=== PATIENT | female | born 1990 | race Hispanic/Latino ===

== ENCOUNTER 2018-04-27 10:52 | Emergency (ER) | payer OTHER ==
[2018-04-27 10:58] VITALS: BMI 19.0
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
[2018-04-27 12:15] LABS: SQUAMOUS EPITHIAL 12 /hpf (0-5); URINE BACTERIA RARE (<OCC); URINE BILIRUBIN NEGATIVE (NEGATIVE); URINE BLOOD 2+ (NEGATIVE); URINE CLARITY Clear (Clear); URINE COLOR Yellow (YELLOW); URINE GLUCOSE (UA) NORMAL (Normal); URINE LEUKOCYTE ESTERASE NEG Leu/uL (Negative); URINE PROTEIN NEGATIVE (NEGATIVE); URINE UROBILINOGEN NORMAL mg/dL (0.2-1.0)
--- NOTE | 2018-04-27 13:25 | RAD ---
Date of service: 04/27/2018 PROCEDURE: Cervical Spine Radiographs. HISTORY: Pain. COMPARISON: None. FINDINGS: BONES: Alignment maintained. No fracture. Dens Intact. The vertebral bodies are maintained in height. There is mild reversal of the normal lordotic curvature indicating possible muscular spasm. The atlantoaxial articulation and odontoid process are intact. . DISC SPACES: Normal. SOFT TISSUES: Normal. No prevertebral soft tissue swelling. OTHER FINDINGS: None. IMPRESSION: Possible muscular spasm. Otherwise unremarkable examination.
--- NOTE | 2018-04-27 14:18 | US ---
Date of service: 04/27/2018 HISTORY: vaginal bleeding s/o injury COMPARISON: None available. TECHNIQUE: Transabdominal and transvaginal FINDINGS: UTERUS: Measures 7.5 x 3.0 x 4.5 cm. Normal size. There are several hypoechoic areas, 1 rounded in 1 irregularly shaped, in the anterior lower uterine segment of uncertain significance. This does not have an appearance consistent with a myometrial hematoma, acute. This is not likely related to the patient's vaginal bleeding. ENDOMETRIUM: Measures 2 mm in diameter. Unremarkable. CERVIX: No cervical abnormality identified. RIGHT OVARY: Measures 3.4 x 1.7 x 2.3 cm. No solid mass. Normal flow. LEFT OVARY: Measures 2.5 x 1.5 x 2.3 cm. No solid mass. Normal flow. FREE FLUID: No significant free fluid noted. OTHER FINDINGS: None. IMPRESSION: Nonspecific hypoechoic regions in the anterior lower uterine segment myometrium. Unlikely to be related to patient's vaginal bleeding. No additional abnormality.
[2018-04-27 14:22] VITALS: BP 117/72; PULSE 78; RESP 18; TEMP 98.5; O2SAT 98
== END 2018-04-27 14:05 | disposition home or self-care (01) ==
LOC: C.ER 10:52
DX: S13.4XXA Sprain of ligaments of cervical spine, initial encounter (principal); V49.9XXA Car occupant (driver) (passenger) injured in unspecified traffic accident, initial encounter; N93.9 Abnormal uterine and vaginal bleeding, unspecified